=== PATIENT | female | born 1985 | race Caucasian/White ===

== ENCOUNTER 2022-03-08 16:06 | Outpatient (CLI) | payer BC, SELFPAY ==
[2022-03-08 21:43] LABS: Cholesterol* 184 mg/dL (90-199)
[2022-03-08 21:44] LABS: Glucose* 95 mg/dL (60-115); HDL Cholesterol* 51 mg/dL (>=50); LDL Cholesterol Calculated 106 mg/dL (<100); Triglycerides* 134 mg/dL (40-149)
[2022-03-08 22:06] LABS: Thyroid Stimulating Hormone* 0.995 uIU/mL (0.270-4.20)
[2022-03-10 23:23] LABS: Prolactin 15.9 ng/mL (2.8-29.2)
[2022-03-15 17:53] LABS: 17-Hydroxyprogesterone HPLC 220.88 ng/dL (<=206.00)
[2022-03-16 19:23] LABS: Sex Hormone Binding Globulin 93 nmol/L (25-122); Testosterone, Free LC-MS/MS 2.2 pg/mL (1.3-9.2); Testosterone, LC-MS/MS 27 ng/dL (9-55)
== END 2022-03-08 16:07 | disposition home or self-care (01) ==
PROVIDERS: Visit Provider Registered Nurse
DX: Z01.419 Encounter for gynecological examination (general) (routine) without abnormal findings (principal); N93.9 Abnormal uterine and vaginal bleeding, unspecified; Z12.4 Encounter for screening for malignant neoplasm of cervix; Z13.6 Encounter for screening for cardiovascular disorders; Z13.1 Encounter for screening for diabetes mellitus
CPT/HCPCS: 80061; 82947; 83498; 84146; 84270; 84402; 84403; 84443; 87624; 88175

== ENCOUNTER 2022-03-12 07:06 | Outpatient (CLI) | payer BC, SELFPAY ==
--- NOTE | 2022-03-12 07:15 | CRLHL7_ITS ---
For Patients: As a result of the Century Cures Act, medical imaging exams and procedure reports are released immediately into your electronic medical record. You may view this report before your referring provider. If you have questions, please contact your health care provider. INDICATION: Abnormal uterine bleeding COMPARISON: none TECHNIQUE: 2D rajput scale and color Doppler images were acquired of the pelvis using a transabdominal and transvaginal approach. FINDINGS: Sonographic images demonstrate a normal size and smooth outer contour of the uterus. Uterus measures 8.1 cm in length by 5.3 cm in AP diameter by 7.0 cm in transverse dimension. The myometrium has a normal uniform echotexture. The endometrial lining measures 12 mm in composite thickness. The right ovary measures 4.3 x 2.3 x 2.7 cm in size and the left ovary measures 4.0 x 2.0 x 2.4 cm. The ovaries demonstrate normal arterial and venous blood flow on color Doppler analysis. There are no suspicious fluid collections within the cul-de-sac. IMPRESSION: Endometrial thickness 12 millimeters. No uterine fibroid. Dictated by Jaswinder Obrien MD @ 03/12/2022 9:12:02 AM (Electronically Signed)
== END 2022-03-12 07:07 | disposition home or self-care (01) ==
LOC: US 07:07
PROVIDERS: Visit Provider Registered Nurse
DX: N93.9 Abnormal uterine and vaginal bleeding, unspecified (principal); R93.89 Abnormal findings on diagnostic imaging of other specified body structures
CPT/HCPCS: 76830; 76856

== ENCOUNTER 2022-03-21 12:54 | Outpatient (CLI) | payer BC, SELFPAY ==
[2022-03-22 15:03] LABS: DHEAS 229 ug/dL (99-340)
[2022-03-25 23:38] LABS: 17-Hydroxyprogesterone HPLC 48.38 ng/dL (<=206.00)
== END 2022-03-21 12:55 | disposition home or self-care (01) ==
PROVIDERS: Visit Provider Registered Nurse
DX: R89.9 Unspecified abnormal finding in specimens from other organs, systems and tissues (principal)
CPT/HCPCS: 82627; 83498